=== PATIENT | female | born 1965 | race Asian ===

== ENCOUNTER 2020-02-23 11:29 | Emergency (ER) | payer SELFPAY ==
[~2020-02-23] VITALS: Ht 154.9 cm; Wt 47.6 kg
[2020-02-23 11:38] VITALS: BP_SYST 150
--- NOTE | 2020-02-23 11:45 | NUR ---
Pt came to ER for R ear pain, states it has been going on for 2 weeks and has completed a round of abx prior to arrival. Pt resting in [facility], no distress, MD lucrecia neal
--- NOTE | 2020-02-23 11:47 | NUR ---
Patient to ER bed 8 to gown for evaluation. Side rails up. Report given to Refugio FARAH.
--- NOTE | 2020-02-23 11:50 | NUR ---
ER at bedside examining patient.
[2020-02-23 12:29] VITALS: BP_SYST 150
--- NOTE | 2020-02-23 12:30 | NUR ---
Patient given written and verbal discharge instructions and verbalizes understanding. ER MD discussed with patient the results and treatment provided. Patient in stable condition. ID arm band removed. No Rx of given. Patient educated on pain management and to follow up with PMD. Pain Scale 0/10. Opportunity for questions provided and answered. Medication side effect fact sheet provided.
== END 2020-02-23 12:30 | disposition home or self-care (01) ==
LOC: SED 11:29
DX: R68.84 Jaw pain (principal)
CPT/HCPCS: 99282